=== PATIENT | female | born 1960 | race American Indian/Alaskan Native ===

== ENCOUNTER 2019-03-04 11:42 | Emergency (ER) | payer MEDICAID ==
[2019-03-04] MEDS ORDERED: cloNIDine 0.1 MG TAB PO ONE (12:05)
--- NOTE | 2019-03-04 12:09 | Emergency Department Report ---
ED Abdominal Pain HPI - General Chief Complaint: Abdominal Pain Stated Complaint: ABD PAIN/HYPERTENSION Time Seen by Provider: 03/04/19 11:59 Source: patient, EMS Mode of arrival: Stretcher Limitations: Physical Limitation - History of Present Illness Initial Comments: Patient is 58 years old female with history of hypertension. Patient brought to the emergency room via EMS from home for evaluation of lower abdominal pain for the last 3 days. Patient described her pain as sharp with no radiation. Patient denied any fever or chills. No nausea or vomiting. Patient is complaining of urinary frequency and dysuria but no hematuria. No chest pain or shortness of breath. MD Complaint: abdominal pain Location: suprapubic Radiation: none Migration to: no migration Severity: moderate Consistency: constant Worsens With: nothing - Related Data Allergies Allergy/AdvReac Type Severity Reaction Status Date / Time No Known Allergies Allergy Unverified 03/04/19 14:37 ED Review of Systems ROS: Stated complaint: ABD PAIN/HYPERTENSION Other details as noted in HPI Comment: All other systems reviewed and negative Constitutional: denies: chills, fever Respiratory: denies: cough, shortness of breath, SOB with exertion, SOB at rest, wheezing Cardiovascular: denies: chest pain, palpitations Gastrointestinal: abdominal pain. denies: nausea, vomiting, diarrhea, c onstipation, hematemesis, melena, hematochezia Genitourinary: urgency, dysuria, frequency. denies: hematuria, discharge Musculoskeletal: denies: back pain Neurological: denies: headache, weakness, numbness ED Past Medical Hx - Past Medical History Hx Hypertension: Yes Hx CVA: Yes - Surgical History Additional Surgical History: L AKA - Social History Smoking Status: Current Every Day Smoker ED Physical Exam - General Limitations: Physical Limitation General appearance: alert, in no apparent distress - Head Head exam: Present: atraumatic, normocephalic, normal inspection - Eye Eye exam: Present: normal appearance - ENT ENT exam: Present: normal exam, normal orophraynx - Neck Neck exam: Present: normal inspection - Respiratory Respiratory exam: Present: normal lung sounds bilaterally - Cardiovascular Cardiovascular Exam: Present: regular rate, normal rhythm, normal heart sounds - GI/Abdominal GI/Abdominal exam: Present: soft, normal bowel sounds. Absent: distended, tenderness, guarding, rebound, rigid, organomegaly, mass, bruit, pulsatile mass, hernia - Extremities Exam Extremities exam: Present: normal inspection, full ROM, normal capillary refill. Absent: tenderness, pedal edema, joint swelling, calf tenderness - Back Exam Back exam: Present: normal inspection, full ROM. Absent: CVA tenderness (R), CVA tenderness (L), muscle spasm, paraspinal tenderness, vertebral tenderness - Neurological Exam Neurological exam: Present: alert, oriented X3 - Skin Skin exam: Present: warm, intact, normal color ED Course Vital Signs 03/04/19 03/04/19 03/04/19 11:50 12:40 12:46 Temperature 98.1 F Pulse Rate 64 53 L 54 L Respiratory 18 17 13 Rate Blood Pressure 174/79 196/85 O2 Sat by Pulse 97 99 98 Oximetry 03/04/19 03/04/19 03/04/19 12:53 13:00 13:16 Temperature Pulse Rate 52 L 56 L 52 L Respiratory 19 13 Rate Blood Pressure 205/79 205/79 201/74 O2 Sat by Pulse 97 97 Oximetry 03/04/19 03/04/19 03/04/19 13:30 13:46 14:00 Temperature Pulse Rate 47 L 44 L 54 L Respiratory 14 17 14 Rate Blood Pressure 191/63 181/82 183/78 O2 Sat by Pulse 99 98 98 Oximetry 03/04/19 03/04/19 03/04/19 14:16 14:30 14:46 Temperature Pulse Rate 45 L 53 L 48 L Respiratory 17 17 18 Rate Blood Pressure 195/79 178/74 158/86 O2 Sat by Pulse 99 96 99 Oximetry 03/04/19 03/04/19 03/04/19 15:00 15:16 15:30 Temperature Pulse Rate 57 L 54 L 62 Respiratory 15 19 15 Rate Blood Pressure 158/78 163/73 174/78 O2 Sat by Pulse 98 97 Oximetry 03/04/19 16:39 Temperature Pulse Rate 57 L Respiratory 18 Rate Blood Pressure 164/79 O2 Sat by Pulse 96 Oximetry ED Medical Decision Making - Lab Data Result diagrams: 03/04/19 12:17 03/04/19 12:17 - Radiology Data Radiology results: report reviewed - Medical Decision Making Patient is 58 years old female with history of hypertension. Patient brought to the emergency room via EMS from home for evaluation of lower abdominal pain for the last 3 days. Patient described her pain as sharp with no radiation. Patient denied any fever or chills. No nausea or vomiting. Patient is complaining of urinary frequency and dysuria but no hematuria. No chest pain or shortness of breath. Patient remained stable in the ER. Labs reviewed and is unremarkable except for significant UTI. CT abdomen and pelvis showed possible enteritis. Patient given prescription for Levaquin and advised to follow up with her primary care physician in the next 2-3 days and to return to the ER if she develop any new symptoms. Critical care attestation.: If time is entered above; I have spent that time in minutes in the direct care of this critically ill patient, excluding procedure time. ED Disposition Clinical Impression: Abdominal pain, UTI (urinary tract infection), Malignant hypertension Disposition: DC-01 TO HOME OR SELFCARE Is pt being admited?: No Condition: Stable Instructions: Abdominal Pain (ED), Hypertension (ED), Urinary Tract Infection in Women (ED) Referrals: PRIMARY CARE, [Referring] - 3-5 Days
[2019-03-04 12:28] LABS: Basophils # (Auto) 0.1 K/mm3 (0.0-0.1); Eosinophils # (Auto) 0.1 K/mm3 (0.0-0.4); Eosinophils % (Auto) 1.6 % (0.0-4.3); Hematocrit 36.3 % (30.3-42.9); Lymphocytes # (Auto) 2.3 K/mm3 (1.2-5.4); Lymphocytes % (Auto) 37.2 % (13.4-35.0); Mean Corpuscular HGB Conc 33 % (30-34); Mean Corpuscular Volume 97 fl (79-97); Monocytes # (Auto) 0.6 K/mm3 (0.0-0.8); Monocytes % (Auto) 9.4 % (0.0-7.3); Platelet Count 483 K/mm3 (140-440); Red Blood Count 3.74 M/mm3 (3.65-5.03); Red Cell Distribution Width 13.7 % (13.2-15.2)
[2019-03-04 12:53] LABS: Alanine Aminotransferase 5 units/L (7-56); Albumin 3.5 g/dL (3.9-5); BUN/Creatinine Ratio 23; Blood Urea Nitrogen 14 mg/dL (7-17); Calcium 9.3 mg/dL (8.4-10.2); Hemolysis Index 8
[2019-03-04 13:27] LABS: Bilirubin,Direct < 0.2 mg/dL (0-0.2)
[2019-03-04 14:09] LABS: Bacteria,Urine 2+ /HPF (Negative); Bilirubin,Urine NEG (Negative); Blood,Urine NEG (Negative); Color,Urine Yellow (Yellow); Mucus,Urine 2+ /HPF; Protein,Urine <15 mg/dL mg/dL (Negative)
[2019-03-04] MEDS ORDERED: hydrALAZINE 20 MG/1 ML INJ IV ONE (16:40)
--- NOTE | 2019-03-04 17:00 | Cat Scan Report ---
CT ABDOMEN AND PELVIS WITH CONTRAST INDICATION: Unspecified abdominal pain. COMPARISON: No relevant prior imaging study available. TECHNIQUE: Axial, coronal and sagittal CT imaging of the abdomen and pelvis was performed after inje ction of 100 mL Omnipaque [address] scans at this location are performed using CT dose re duction for ALARA by means of automated exposure control. FINDINGS: LOWER CHEST: There is mild bibasilar atelectasis. The heart is mildly enlarged without a significant pericardial effusion. LIVER: No significant abnormality. BILIARY: No significant abnormality. PANCREAS: No significant abnormality. SPLEEN: No significant abnormality. ADRENALS: No significant abnormality. KIDNEYS AND URETERS: No significant abnormality. GI TRACT: No significant abnormality of the stomach. The small bowel is not significantly dilated or thickened. Some fluid-filled small bowel bowel loops are seen that are nonspecific without associated inflammation. Generalized colonic diverticulosis is seen without evidence of diverticulitis. Unremar kable appendix. PERITONEUM: No free fluid. No free air. No fluid collection. LYMPH NODES: No significant adenopathy. VASCULATURE: The aorta is normal in caliber. The visualized branches of the aorta are patent with mod erate to severe generalized atherosclerosis. URINARY BLADDER: No significant abnormality. REPRODUCTIVE ORGANS: No significant abnormality. ADDITIONAL FINDINGS: None. 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 No other acute abnorm ality is seen. Osteopenia is noted with degenerative changes throughout the spine. IMPRESSION: 1. Nonspecific, nonobstructive appearance of the small bowel may represent enteritis. Please correlat e with the clinical findings. 2. Additional findings as above. Signer Name: Jose Eduardo Tejeda MD Signed: 03/04/2019 4:56 PM Workstation Name: [id number]
[2019-03-04 20:02] VITALS: BP 135/64
== END 2019-03-04 21:49 | disposition home or self-care (01) ==
LOC: ED 11:42
DX: N39.0 Urinary tract infection, site not specified (principal); I10 Essential (primary) hypertension; F17.200 Nicotine dependence, unspecified, uncomplicated; Z86.73 Personal history of transient ischemic attack (TIA), and cerebral infarction without residual deficits
CPT/HCPCS: 36415; 74177; 80048; 80076; 81001; 83690; 85025; 87076; 87086; 87186; 96374; 99284; J0360; Q9967